=== PATIENT | female | born 1940 | race Asian ===

== ENCOUNTER 2016-10-20 17:16 | Emergency (ER) | payer BC ==
[~2016-10-20] VITALS: Ht 149.9 cm; Wt 44.5 kg
[2016-10-20 17:21] VITALS: BP 142/86; PULSE 86; RESP 18; TEMP 98.3; O2SAT 98
--- NOTE | 2016-10-20 17:25 | NUR ---
Patient to ER bed 8 to gown for evaluation. Side rails up. Report received from Ricki MEDLEY.
--- NOTE | 2016-10-20 17:30 | NUR ---
Pt presents to ED c/o BAZZI x 1week beginning as frontal BAZZI and presenting as occipital pain today.Pt h/o HTN and hyperlipidemia.Pt reports taking aleve OTC w/o relief.Pt denies N/V/D , SOB OR CP.
--- NOTE | 2016-10-20 17:35 | NUR ---
ER DEJAN Aguiar at bedside examining patient.
[2016-10-20] MEDS ORDERED: NACL 0.9% 500 ML IV ONE (17:45)
[2016-10-20] MEDS ORDERED: ACETAMINOPHEN 500 MG TABLET PO ONE (17:45)
--- NOTE | 2016-10-20 18:00 | NUR ---
Pt tolerating medication well.
[2016-10-20 18:40] LABS: BILIRUBIN,URINE NEGATIVE (NEGATIVE); BLOOD, URINE NEGATIVE (NEGATIVE); CLARITY/URINE CLEAR (CLEAR); COLOR,URINE YELLOW (YELLOW); GLUCOSE,URINE NEGATIVE (NEGATIVE); KETONES,URINE NEGATIVE (NEGATIVE); LEUKOCYTE ESTERASE ,URINE NEGATIVE (NEGATIVE); NITRITE, URINE NEGATIVE (NEGATIVE); PROTEIN URINE NEGATIVE (NEGATIVE); UROBILINOGEN,URINE 0.2 (0.2-1.0)
[2016-10-20 18:44] LABS: BASOPHILS # (AUTO) 0.1 K/uL (0.0-0.2); BASOPHILS % (AUTO) 1.1 % (0.0-2.0); EOSINOPHILS # (AUTO) 0.1 K/uL (0.0-0.4); EOSINOPHILS % (AUTO) 0.9 % (0.0-4.0); HEMATOCRIT 33.9 % (36-48); HEMOGLOBIN 10.4 g/dL (12.0-16.0); LYMPHOCYTES # (AUTO) 2.1 K/uL (1.0-5.5); LYMPHOCYTES % (AUTO) 28.6 % (20.5-51.5); MEAN CORPUSCULAR HEMOGLOBIN 22 pg (27-31); MEAN CORPUSCULAR HGB CONC 31 % (32-36); MEAN CORPUSCULAR VOLUME 71 fL (79.0-98.0); MONOCYTES # (AUTO) 0.3 K/uL (0.0-1.0); MONOCYTES % (AUTO) 4.3 % (1.7-9.3); NEUTROPHILS # (AUTO) 4.8 K/uL (1.8-7.7); NEUTROPHILS % (AUTO) 65.1 % (40.0-70.0); PLATELET COUNT (AUTO) 308 K/uL (130-430); RED BLOOD CELL COUNT(AUTO) 4.82 MIL/uL (4.2-6.2); RED CELL DISTRIBUTION WIDTH 15.2 % (9.0-15.0); WHITE BLOOD COUNT (AUTO) 7.4 K/uL (4.8-10.8)
[2016-10-20 18:55] LABS: ANION GAP 7 (5-15); CALCIUM 8.6 mg/dL (8.4-11.0); CHLORIDE 101 mmol/L (98-107); CREATININE 1.08 mg/dL (0.55-1.30); GLUCOSE 176 mg/dL (70-99); POTASSIUM 3.9 mmol/L (3.5-5.1); SODIUM SERUM 135 mmol/L (136-145); UREA NITROGEN, BLOOD 17 mg/dL (8-21)
[2016-10-20 19:04] LABS: ALANINE AMINOTRANSFERASE 26 U/L (12-78); ALBUMIN 3.9 g/dL (3.4-4.8); ASPARTATE AMINOTRANSFERASE 24 U/L (10-37); INR 0.9 (0.8-1.2); PROTHROMBIN TIME 9.9 SECS (9.5-12.5); TOTAL BILIRUBIN 0.3 mg/dL (0.0-1.0); TOTAL PROTEIN, SERUM 7.4 g/dL (6.4-8.3)
--- NOTE | 2016-10-20 19:15 | NUR ---
Pt reports pain resolving.Pt endorsed to [place] RN
--- NOTE | 2016-10-20 19:30 | NUR ---
Pt laying bed, with at bedside. Denied any headache and nausea vomiting at the time
[2016-10-20 19:52] VITALS: BP 138/72; PULSE 86; RESP 18; TEMP 98.3; O2SAT 98
== END 2016-10-20 19:52 | disposition home or self-care (01) ==
LOC: SED 17:16
DX: R51 Headache (principal); D64.9 Anemia, unspecified; I10 Essential (primary) hypertension; E78.00 Pure hypercholesterolemia, unspecified; M54.30 Sciatica, unspecified side; Z88.8 Allergy status to other drugs, medicaments and biological substances
CPT/HCPCS: 36415; 70450; 71010; 80053; 81003; 85025; 85610; 93005; 96360; 99285; J7040

== ENCOUNTER 2017-01-21 12:37 | Outpatient (CLI) | payer BC | END 2017-01-21 20:25 | disposition home or self-care (01) | LOC: SUS 12:37 | PROVIDERS: ATTEND Family Medicine | DX: I65.23 Occlusion and stenosis of bilateral carotid arteries (principal); I70.90 Unspecified atherosclerosis; I10 Essential (primary) hypertension | CPT/HCPCS: 93880 ==

== ENCOUNTER 2017-02-11 08:53 | Outpatient (CLI) | payer BC | END 2017-02-11 20:14 | disposition home or self-care (01) | LOC: SMI 08:53 | DX: M48.12 Ankylosing hyperostosis [Forestier], cervical region (principal); M47.892 Other spondylosis, cervical region | CPT/HCPCS: 72141 ==

== ENCOUNTER 2017-04-22 08:24 | Emergency (ER) | payer BC ==
[~2017-04-22] VITALS: Ht 149.9 cm; Wt 45.4 kg
[2017-04-22 08:28] VITALS: BP_SYST 147
[2017-04-22 09:30] VITALS: BP_SYST 125
== END 2017-04-22 09:30 | disposition home or self-care (01) ==
LOC: SED 08:24
DX: I10 Essential (primary) hypertension (principal); E78.00 Pure hypercholesterolemia, unspecified; M54.30 Sciatica, unspecified side; Z88.8 Allergy status to other drugs, medicaments and biological substances
CPT/HCPCS: 99281

== ENCOUNTER 2017-05-05 09:17 | Outpatient (CLI) | payer BC | END 2017-05-05 18:42 | disposition home or self-care (01) | LOC: SMA 09:17 | PROVIDERS: ATTEND Family Medicine | DX: Z12.31 Encounter for screening mammogram for malignant neoplasm of breast (principal) | CPT/HCPCS: G0202 ==

== ENCOUNTER 2017-07-31 12:54 | Emergency (ER) | payer BC ==
[~2017-07-31] VITALS: Ht 152.4 cm; Wt 45.4 kg
[2017-07-31 12:58] VITALS: BP_SYST 146
[2017-07-31 13:33] LABS: BASOPHILS % (AUTO) 0.6 % (0.0-2.0); EOSINOPHILS # (AUTO) 0.1 K/uL (0.0-0.4); EOSINOPHILS % (AUTO) 1.2 % (0.0-4.0); HEMATOCRIT 37.4 % (36-48); HEMOGLOBIN 11.8 g/dL (12.0-16.0); LYMPHOCYTES # (AUTO) 1.6 K/uL (1.0-5.5); LYMPHOCYTES % (AUTO) 19.6 % (20.5-51.5); MEAN CORPUSCULAR HEMOGLOBIN 22 pg (27-31); MEAN CORPUSCULAR HGB CONC 32 % (32-36); MEAN CORPUSCULAR VOLUME 71 fL (79.0-98.0); MONOCYTES # (AUTO) 0.3 K/uL (0.0-1.0); MONOCYTES % (AUTO) 3.5 % (1.7-9.3); NEUTROPHILS # (AUTO) 6.3 K/uL (1.8-7.7); NEUTROPHILS % (AUTO) 75.1 % (40.0-70.0); PLATELET COUNT (AUTO) 303 K/uL (130-430); RED BLOOD CELL COUNT(AUTO) 5.29 MIL/uL (4.2-6.2); RED CELL DISTRIBUTION WIDTH 15.5 % (9.0-15.0); WHITE BLOOD COUNT (AUTO) 8.3 K/uL (4.8-10.8)
[2017-07-31 13:44] LABS: ANION GAP 8 (5-15); CALCIUM 9.2 mg/dL (8.4-11.0); CHLORIDE 103 mmol/L (98-107); CREATININE 0.63 mg/dL (0.55-1.30); GLUCOSE 101 mg/dL (70-99); POTASSIUM 3.7 mmol/L (3.5-5.1); SODIUM SERUM 139 mmol/L (136-145); UREA NITROGEN, BLOOD 21 mg/dL (8-21)
[2017-07-31 13:49] LABS: ALANINE AMINOTRANSFERASE 24 U/L (12-78); ALBUMIN 3.9 g/dL (3.4-4.8); ASPARTATE AMINOTRANSFERASE 23 U/L (10-37); TOTAL BILIRUBIN 0.6 mg/dL (0.0-1.0)
[2017-07-31 14:14] LABS: BILIRUBIN,URINE NEGATIVE (NEGATIVE); BLOOD, URINE NEGATIVE (NEGATIVE); CLARITY/URINE CLEAR (CLEAR); COLOR,URINE YELLOW (YELLOW); GLUCOSE,URINE NEGATIVE (NEGATIVE); KETONES,URINE NEGATIVE (NEGATIVE); LEUKOCYTE ESTERASE ,URINE NEGATIVE (NEGATIVE); NITRITE, URINE NEGATIVE (NEGATIVE); PROTEIN URINE NEGATIVE (NEGATIVE); UROBILINOGEN,URINE 0.2 (0.2-1.0)
[2017-07-31 14:20] VITALS: BP_SYST 143
== END 2017-07-31 14:17 | disposition home or self-care (01) ==
LOC: SED 12:54
DX: S09.90XA Unspecified injury of head, initial encounter (principal); I10 Essential (primary) hypertension; E78.00 Pure hypercholesterolemia, unspecified; M54.30 Sciatica, unspecified side; Z88.8 Allergy status to other drugs, medicaments and biological substances; W01.0XXA Fall on same level from slipping, tripping and stumbling without subsequent striking against object, initial encounter; Y93.89 Activity, other specified; Y92.090 Kitchen in other non-institutional residence as the place of occurrence of the external cause; Y99.8 Other external cause status
CPT/HCPCS: 36415; 70450-TC; 80053; 81003; 85025; 99285

== ENCOUNTER 2018-08-22 09:04 | Outpatient (CLI) | payer BC | END 2018-08-22 21:21 | disposition home or self-care (01) | LOC: SMA 09:04 | PROVIDERS: ATTEND Family Medicine | DX: Z12.31 Encounter for screening mammogram for malignant neoplasm of breast (principal) | CPT/HCPCS: 77067 ==

== ENCOUNTER 2019-02-15 13:20 | Outpatient (CLI) | payer BC | END 2019-02-15 20:48 | disposition home or self-care (01) | LOC: SRD 13:20 | PROVIDERS: ATTEND Family Medicine | DX: M47.816 Spondylosis without myelopathy or radiculopathy, lumbar region (principal); M43.16 Spondylolisthesis, lumbar region; M81.0 Age-related osteoporosis without current pathological fracture; I70.0 Atherosclerosis of aorta | CPT/HCPCS: 72110 ==

== ENCOUNTER 2019-02-27 07:49 | Emergency (ER) | payer BC ==
[~2019-02-27] VITALS: Ht 149.9 cm; Wt 43.1 kg
[2019-02-27 08:14] VITALS: BP_SYST 160
--- NOTE | 2019-02-27 08:15 | NUR ---
Placed in room 8 . Placed on bus monitor, blood pressure machine and pulse oximeter. To gown for exam. Side rails up.
--- NOTE | 2019-02-27 08:20 | NUR ---
PAOLA Rees at bedside examining patient.
--- NOTE | 2019-02-27 08:20 | NUR ---
Tapan vaz in [facility] - 02/27/19 at 0820 by CHICANDONNA philip anguiano
--- NOTE | 2019-02-27 08:25 | NUR ---
pt arrives to the ER with concerns regarding her BP. Current BP is 160/84. Pt did take her BP med this am. Will continue to monitor.
--- NOTE | 2019-02-27 08:43 | NUR ---
Pt's current BP is 134/74. Pt reports feeling less anxious
[2019-02-27 08:44] VITALS: BP_SYST 136
--- NOTE | 2019-02-27 08:46 | NUR ---
Patient given written and verbal discharge instructions and verbalizes understanding. ER MD discussed with patient the results and treatment provided. Patient in stable condition. ID arm band removed. Patient educated on pain management and to follow up with PMD. Pain Scale 0/10. Opportunity for questions provided and answered. Medication side effect fact sheet provided.
== END 2019-02-27 08:44 | disposition home or self-care (01) ==
LOC: SED 07:49
DX: I10 Essential (primary) hypertension (principal); E78.00 Pure hypercholesterolemia, unspecified; Z86.79 Personal history of other diseases of the circulatory system; Z88.8 Allergy status to other drugs, medicaments and biological substances
CPT/HCPCS: 99281; 99283

== ENCOUNTER 2020-03-23 10:25 | Emergency (ER) | payer BC ==
[~2020-03-23] VITALS: Ht 149.9 cm; Wt 44.5 kg
[2020-03-23 10:32] VITALS: BP_SYST 139
--- NOTE | 2020-03-23 10:41 | NUR ---
Patient to ER bed 3 to gown for evaluation. Side rails up. Report given to Riddhi MEDLEY.
--- NOTE | 2020-03-23 10:42 | NUR ---
ER at bedside examining patient.
--- NOTE | 2020-03-23 10:44 | NUR ---
Patient AAO x 4 ambulates to ER bed 3 with c/o bump to R forehead and R upper lip s/p mechanical fall over 's cane this AM. Skin is warm, dry, and intact. Denies pain at this time. Patient has h/o hypertension and hyperlipidemia. Even chest rise and fall with respirations. Will continue to monitor.
--- NOTE | 2020-03-23 10:52 | NUR ---
production control technologist at bedside to transport patient to CT scan.
--- NOTE | 2020-03-23 10:58 | NUR ---
Patient returns to ER bed [address] scan.
[2020-03-23 11:30] VITALS: BP_SYST 122
--- NOTE | 2020-03-23 11:30 | NUR ---
Patient given written and verbal discharge instructions and verbalizes understanding. ER MD Dr. Mcadams discussed with patient the results and treatment provided. Patient in stable condition. ID arm band removed. No Rx given. Patient educated on pain management and to follow up with PCP. Pain Scale 0/10. Opportunity for questions provided and answered. Medication side effect fact sheet provided.
== END 2020-03-23 11:30 | disposition home or self-care (01) ==
LOC: SED 10:25
DX: K13.0 Diseases of lips (principal); R51.9 Headache, unspecified; I10 Essential (primary) hypertension; E78.00 Pure hypercholesterolemia, unspecified; Z86.73 Personal history of transient ischemic attack (TIA), and cerebral infarction without residual deficits; Z88.8 Allergy status to other drugs, medicaments and biological substances; Z90.710 Acquired absence of both cervix and uterus; W01.0XXA Fall on same level from slipping, tripping and stumbling without subsequent striking against object, initial encounter; Y93.89 Activity, other specified; Y92.89 Other specified places as the place of occurrence of the external cause; Y99.8 Other external cause status
CPT/HCPCS: 70450-TC; 99284

== ENCOUNTER 2020-06-09 11:00 | Emergency (ER) | payer BC ==
[~2020-06-09] VITALS: Ht 149.9 cm; Wt 44.5 kg
[2020-06-09 12:00] VITALS: BP_SYST 137
--- NOTE | 2020-06-09 12:00 | NUR ---
seen by Dr. Dodson in tent
--- NOTE | 2020-06-09 12:00 | NUR ---
triaged in tent
--- NOTE | 2020-06-09 14:00 | NUR ---
Patient given written and verbal discharge instructions and verbalizes understanding. ER MD discussed with patient the results and treatment provided. Patient in stable condition. ID arm band removed. Rx of motrin given. Patient educated on pain management and to follow up with PMD. Pain Scale 0/10. Opportunity for questions provided and answered. Medication side effect fact sheet provided.
[2020-06-09 14:02] VITALS: BP_SYST 137
== END 2020-06-09 14:02 | disposition home or self-care (01) ==
LOC: SED 11:00
DX: R51.9 Headache, unspecified (principal); I10 Essential (primary) hypertension; E78.00 Pure hypercholesterolemia, unspecified
CPT/HCPCS: 70450-TC; 76376; 99284